=== PATIENT | male | born 1955 | race Caucasian/White ===

== ENCOUNTER 2020-07-22 14:40 | Emergency (ER) | payer BC ==
--- NOTE | 2020-07-22 15:23 | RAD REPORT ---
EXAM DESCRIPTION: RAD - Chest Single View - 07/22/2020 3:12 pm CLINICAL HISTORY: COUGH COMPARISON: None TECHNIQUE: AP portable chest image was obtained 07/22/2020 3:12 pm . FINDINGS: Portable exam is limited. Patient is semi upright in positioning. No dense mass or consoli dations seen. Lung base assessment is limited due to the amount of overlying soft tissue. Heart and v asculature are normal. No measurable pleural effusion and no pneumothorax. No acute bony abnormality seen. No acute aortic findings suspected. IMPRESSION: No acute cardiopulmonary process. Lung base assessment is limited by body habitus and portable technique. Follow-up two view imaging co uld be obtained as clinical findings warrant.
[2020-07-22 15:51] LABS: SARS-COV-2 RT PCR POSITIVE (NEGATIVE)
--- NOTE | 2020-07-22 15:52 | ER ---
Nurse's Notes [facility] Name: Alec Santos Age: 64 yrs Sex: Male : 1955 Arrival Date: 07/22/2020 Time: 14:45 Bed 14 Private MD: Diagnosis: Coronavirus infection, unspecified Presentation: 07/22 14:54 Chief complaint: Patient states: SOB, body aches and unable to smell or taste since ss yesterday. Coronavirus screen: Client denies travel out of the [place] in the last 14 days. Ebola Screen: Patient denies exposure to infectious person. Patient denies travel to an Ebola-affected area in the 21 days before illness onset. Initial Sepsis Screen: Does the patient meet any 2 criteria? No. Patient's initial sepsis screen is negative. Does the patient have a suspected source of infection? No. Patient's initial sepsis screen is negative. Risk Assessment: Do you want to hurt yourself or someone else? Patient reports no desire to harm self or others. Onset of symptoms was July 21, 2020. 14:54 Method Of Arrival: Ambulatory ss 14:54 Acuity: ERIC 3 ss Triage Assessment: 15:04 Respiratory: Onset: The symptoms/episode began/occurred yesterday, the patient has mild vg1 shortness of breath. Historical: - Allergies: 14:57 Fish Oil; ss - PMHx: 14:57 COPD; Hypertension; Diabetes - IDDM; ss - PSHx: 14:57 Appendectomy; foot; ss - Immunization history:: Adult Immunizations up to date. - Social history:: Smoking status: Reported history of juuling and/or vaping. Screenin:04 Abuse screen: Denies threats or abuse. Nutritional screening: No deficits noted. vg1 Tuberculosis screening: No symptoms or risk factors identified. Fall Risk No fall in past 12 months (0 pts). No secondary diagnosis (0 pts). No IV (0 pts). Ambulatory Aid- None/Bed Rest/Nurse Assist (0 pts). Gait- Normal/Bed Rest/Wheelchair (0 pts) Mental Status- Oriented to own ability (0 pts). Total Wilhelm Fall Scale indicates No Risk (0-24 pts). Assessment: 15:02 General: Appears in no apparent distress. comfortable, Behavior is calm, cooperative. vg1 Pain: Denies pain. Neuro: Level of Consciousness is awake, alert, obeys commands, Oriented to person, place, time, situation. Respiratory: Airway is patent Respiratory effort is even, unlabored, Respiratory pattern is regular, symmetrical, Breath sounds are clear bilaterally. Respiratory: Reports shortness of breath on exertion Denies cough. GI: Abdomen is round non-distended, Reports diarrhea. : No signs and/or symptoms were reported regarding the genitourinary system. EENT: Denies sore throat. Derm: Skin is pink, warm \T\ dry. Musculoskeletal: Circulation, motion, and sensation intact. 15:02 Reassessment: Patient stated has lost sense of smell and taste and has been around 1 people who have been exposed to covid. Vital Signs: 14:54 BP 140 / 80; Pulse 87; Resp 18; Temp 99.4(TE); Pulse Ox 97% on R/A; Weight 122.47 kg; ss Height 5 ft. 10 in. (177.80 cm); Pain 4/10; 14:54 Body Mass Index 38.74 (122.47 kg, 177.80 cm) ED Course: 14:45 Patient arrived in ED. mr 14:46 [facility] Tranistin[facility] kb 14:46 Savage Kirby MD is Attending Physician. kb 14:48 Ashley Alvarado, RN is Primary Nurse. vg1 14:55 Triage completed. ss 14:57 Arm band placed on right wrist. ss 15:04 Patient has correct armband on for positive identification. Bed in low position. Call vg1 light in reach. Side rails up X 1. 15:09 COVID swab sent to lab. Flu and/or RSV swab sent to lab. X-ray(s) taken. jp3 15:12 Chest Single View XRAY In Process Unspecified. EDMS 16:04 No provider procedures requiring assistance completed. Patient did not have IV access vg1 during this emergency room visit. Administered Medications: No medications were administered Outcome: 15:51 Discharge ordered by . kb 16:04 Discharged to home ambulatory. vg1 16:04 Condition: stable 16:04 Discharge instructions given to patient, Instructed on discharge instructions, follow up and referral plans. Demonstrated understanding of instructions, follow-up care. 16:05 Patient left the ED. vg1 Signatures: Dispatcher [employer] Yessy Leon, RIG HAND-C RIG HAND-Samreen Milner mr Sulma Griffith, RN RN ss Ronnie Cobb 3 Ashley Alvarado, DONNIE RN vg1
--- NOTE | 2020-07-22 15:52 | EDPHYS ---
Physician Documentation [facility] Name: Alec Santos Age: 64 yrs Sex: Male : 1955 Arrival Date: 07/22/2020 Time: 14:45 Bed 14 Private MD: ED Physician Savage Kirby HPI: 07/22 15:40 This 64 yrs old Male presents to ER via Ambulatory with complaints of kb Shortness Of Breath. 15:40 The patient has not experienced similar symptoms in the past. The patient has not kb recently seen a physician. 15:40 The patient or guardian reports cough, that is intermittent, described as moderate, kb with no sputum, difficulty breathing, flu symptoms, myalgias. Onset: The symptoms/episode began/occurred yesterday. Severity of symptoms: At their worst the symptoms were mild, moderate, in the emergency department the symptoms are unchanged. Modifying factors: The symptoms are alleviated by nothing, the symptoms are aggravated by nothing. Associated signs and symptoms: The patient has no apparent associated signs or symptoms. cough, congestion, lack of smell and taste, bodyaches since yesterday. Historical: - Allergies: 14:57 Fish Oil; ss - PMHx: 14:57 COPD; Hypertension; Diabetes - IDDM; ss - PSHx: 14:57 Appendectomy; foot; ss - Immunization history:: Adult Immunizations up to date. - Social history:: Smoking status: Reported history of juuling and/or vaping. ROS: 15:39 Cardiovascular: Negative for chest pain, palpitations, and edema, Abdomen/GI: Negative kb for abdominal pain, nausea, vomiting, diarrhea, and constipation, Back: Negative for injury and pain, MS/Extremity: Negative for injury and deformity, Skin: Negative for injury, rash, and discoloration, Neuro: Negative for headache, weakness, numbness, tingling, and seizure. 15:39 Constitutional: Positive for body aches, fatigue, malaise. 15:39 ENT: Positive for lack of taste and smell. 15:39 Respiratory: Positive for cough, shortness of breath, Negative for dyspnea on exertion, hemoptysis, orthopnea, pleurisy, sputum production, wheezing. Exam: 15:39 Constitutional: This is a well developed, well nourished patient who is awake, alert, kb and in no acute distress. Head/Face: Normocephalic, atraumatic. Chest/axilla: Normal chest wall appearance and motion. Nontender with no deformity. No lesions are appreciated. Cardiovascular: Regular rate and rhythm with a normal S1 and S2. No gallops, murmurs, or rubs. Normal PMI, no JVD. No pulse deficits. Respiratory: Lungs have equal breath sounds bilaterally, clear to auscultation and percussion. No rales, rhonchi or wheezes noted. No increased work of breathing, no retractions or nasal flaring. Abdomen/GI: Soft, non-tender, with normal bowel sounds. No distension or tympany. No guarding or rebound. No evidence of tenderness throughout. Skin: Warm, dry with normal turgor. Normal color with no rashes, no lesions, and no evidence of cellulitis. MS/ Extremity: Pulses equal, no cyanosis. Neurovascular intact. Full, normal range of motion. Neuro: Awake and alert, GCS 15, oriented to person, place, time, and situation. Cranial nerves II-XII grossly intact. Motor strength 5/5 in all extremities. Sensory grossly intact. Cerebellar exam normal. Normal gait. Vital Signs: 14:54 BP 140 / 80; Pulse 87; Resp 18; Temp 99.4(TE); Pulse Ox 97% on R/A; Weight 122.47 kg; ss Height 5 ft. 10 in. (177.80 cm); Pain 4/10; 14:54 Body Mass Index 38.74 (122.47 kg, 177.80 cm) ss MDM: 14:47 Patient medically screened. kb 15:38 Data reviewed: vital signs, nurses notes. Data interpreted: Pulse oximetry: on room air kb is 97 %. Interpretation: normal. Counseling: I had a detailed discussion with the patient and/or guardian regarding: the historical points, exam findings, and any diagnostic results supporting the discharge/admit diagnosis, lab results, radiology results, the need for outpatient follow up, a family practitioner, to return to the emergency department if symptoms worsen or persist or if there are any questions or concerns that arise at home. 07/22 14:52 Order name: Chest Single View XRAY; Complete Time: 15:26 kb 07/22 15:51 Order name: COVID-19/FLU A+B; Complete Time: 15:52 EDMS Administered Medications: No medications were administered Disposition: 07/22/20 15:51 Discharged to Home. Impression: Coronavirus infection, unspecified. - Condition is Stable. - Discharge Instructions: Viral Respiratory Infection, [id number], COVID-19. - Medication Reconciliation Form, Thank You Letter, Antibiotic Education, Prescription Opioid Use, Work release form form. - Follow up: Emergency Department; When: As needed; Reason: Worsening of condition. Follow up: Private Physician; When: 2 - 3 days; Reason: Recheck today's complaints, Continuance of care, Re-evaluation by your physician. Addendum: 07/24/2020 18:01 Co-signature as Attending Physician, Savage Kirby MD. m a2 Signatures: Dispatcher [employer] EDOH Yessy Tran, FREIGHT REPRESENTATIVE-C FREIGHT REPRESENTATIVE-Sulma Mojica, DONNIE RN ss Savage Kirby MD MD ma2 Ashley Alvarado RN RN vg1 Corrections: (The following items were deleted from the chart) 07/22 15:06 14:53 CORONAVIRUS+MR.LAB.BRZ ordered. EDOH EDOH 15:07 14:53 Influenza Screen (A \T\ B)+BA.LAB.BRZ ordered. [facility] EDOH 16:05 15:51 07/22/2020 15:51 Discharged to Home. Impression: Coronavirus infection, vg1 unspecified. Condition is Stable. Forms are Medication Reconciliation Form, Thank You Letter, Antibiotic Education, Prescription Opioid Use. Follow up: Emergency Department; When: As needed; Reason: Worsening of condition. Follow up: Private Physician; When: 2 - 3 days; Reason: Recheck today's complaints, Continuance of care, Re-evaluation by your physician. kb
[2020-07-22 16:09] VITALS: BP 140/80; TEMP 99.4; O2SAT 97
== END 2020-07-22 16:05 | disposition home or self-care (01) ==
LOC: ER 14:40
DX: U07.1 COVID-19 (principal); J44.9 Chronic obstructive pulmonary disease, unspecified; E11.9 Type 2 diabetes mellitus without complications; Z79.4 Long term (current) use of insulin; I10 Essential (primary) hypertension; F17.290 Nicotine dependence, other tobacco product, uncomplicated
CPT/HCPCS: 0240U; 71045; 99283

== ENCOUNTER 2024-01-29 08:06 | Emergency (ER) | payer OTHER ==
[2024-01-29 10:06] LABS: Specific Gravity 1.015 (1.005-1.030); Sqamous Epithelial <5 /HPF (None Seen); Urine Bacteria None Seen /HPF (<20); Urine Bilirubin NEGATIVE (Negative); Urine Blood Negative (Negative); Urine Clarity Clear (Clear); Urine Color Light-Yellow (Yellow); Urine Culture Reflex Order NOT NEEDED; Urine Glucose NEGATIVE (Negative); Urine Ketones NEGATIVE (Negative); Urine Microscopic Reflex YN ORDER UMIC; Urine Nitrite NEGATIVE (Negative); Urine Protein TRACE (Negative); Urine RBC None Seen /HPF (None Seen); Urine Urobilinogen Normal (Normal); Urine WBC None Seen /HPF (<5); Urine pH 6.5 (5.0-7.0)
--- NOTE | 2024-01-29 10:08 | RAD REPORT ---
EXAM DESCRIPTION: CT - Stone Protocol - 01/29/2024 9:20 am CLINICAL HISTORY: right back pain COMPARISON: Abdomen Pelvis W Contrast dated 12/26/2021; Stone Protocol dated 01/14/2019 TECHNIQUE: Thin cut axial CT imaging of the abdomen and pelvis was performed without IV contrast. Mu ltiplanar reformats were generated and reviewed. All CT scans are performed using dose optimization technique as appropriate and may include automated exposure control or mA/KV adjustment according to patient size. FINDINGS: No suspicious findings in the lung bases. The liver, spleen, adrenal glands, and pancreas show no suspicious findings. Gallbladder and biliary tree are also without suspicious finding. Symmetric renal contour, without suspicious parenchymal findings within limits of noncontrast techniq ue. No evidence of radiopaque calculi or hydroureteronephrosis. No dilated bowel loops or bowel wall thickening. Mild distal colonic diverticulosis. No free air, rosa m e fluid or inflammatory stranding. No hernia, mass or bulky lymphadenopathy. The urinary bladder is d ecompressed, with stable mild pericystic fat stranding, nonspecific. No suspicious bony findings. IMPRESSION: No acute intra-abdominal process. Decompressed bladder, again with stable mild pericystic fat stranding, nonspecific, which may represe nt sequelae of chronic cystitis. Please correlate clinically and with urinalysis results.
[2024-01-29 10:09] LABS: Absolute Eosinophils 0.1 K/uL (0-0.5); Absolute Lymphocytes (CBC) 0.9 K/uL (0.7-4.9); Absolute Monocytes 0.4 K/uL (0.1-1.3); Absolute Neutrophil 4.5 K/uL (1.8-8.0); Basophils % 0.5 % (0-1.3); Hematocrit 47.4 % (39.6-49.0); Hemoglobin 15.6 g/dL (13.6-17.9); Lymphocytes % 14.9 % (15.3-44.8); MCH 30.5 pg (27.0-35.0); MCHC 32.9 g/dL (32.0-36.0); MCV 92.5 fL (80-100); MPV 7.6 fL (7.6-11.3); Monocytes % 6.4 % (3.3-12.3); Neutrophils % 77.2 % (41.7-73.7); Platelets 165 thou/uL (152-406); RBC Red Blood Cell Count 5.13 M/uL (4.33-5.43); Red Cell Distribution Width 13.3 % (12.1-15.2)
[2024-01-29 10:18] LABS: Albumin 3.5 g/dL (3.4-5.0); Albumin/Globulin Ratio 0.9 (1.1-1.8); Anion Gap 11.3 mEq/L (5.0-15.0); Bilirubin Total 0.5 mg/dL (0.2-1.0); Globulin 3.8 g/dL (2.3-3.5); Potassium 3.3 mEq/L (3.5-5.1); Protein, Total 7.3 g/dL (6.4-8.2)
--- NOTE | 2024-01-29 11:17 | EDPHYS ---
Physician Documentation [facility] Name: Alec Santos Age: 68 yrs Sex: Male : 1955 Arrival Date: 01/29/2024 Time: 08:06 Bed 7 Private MD: ED Physician Stanford Ott HPI: 01/28 09:16 This 68 yrs old Male presents to ER via Ambulatory with complaints of Low Back Pain. rn 09:16 The patient presents with pain that is acute, with no known mechanism of injury. The rn symptoms are located in the low back. The pain does not radiate. 09:16 Onset: The symptoms/episode began/occurred 3 day(s) ago. Modifying factors: The patient rn symptoms are alleviated by nothing, the patient symptoms are aggravated by any movement. Associated signs and symptoms: Pertinent positives: none Pertinent negatives: abdominal pain, chest pain, constipation, dysuria, fever, hematuria, incontinence, numbness, tingling, urinary retention, weakness. Severity of symptoms: At their worst the symptoms were moderate, in the emergency department the symptoms are unchanged. The patient has experienced similar episodes in the past. 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 Went deep sea fishing and was kind of rough over the weekend on the boat, a few days later started having right lower back pain. No radiation. Worse with movement and bending. No abdominal pain. No urinary symptoms. Has a known prostatomegaly and takes tamsulosin but states urinary symptoms and weak stream have not changed. No chest pain or shortness of breath. No fever or chills. Has had a UTI in the past but this feels different. No history of kidney stones.. Historical: - Allergies: 08:25 Fish Oil; ap3 - PMHx: 08:25 COPD; Diabetes - IDDM; Hypertension; ap3 - Immunization history:: Client reports receiving the 2nd dose of the Covid vaccine. - Infectious Disease History:: Denies. - Social history:: Smoking status: Reported history of juuling and/or vaping. - Family history:: not pertinent. - Hospitalizations: : No recent hospitalization is reported. ROS: 09:16 Constitutional: Negative for fever, chills, and weight loss, Cardiovascular: Negative rn for chest pain, palpitations, and edema, Respiratory: Negative for shortness of breath, cough, wheezing, and pleuritic chest pain, Abdomen/GI: Negative for abdominal pain, nausea, vomiting, diarrhea, and constipation, Back: Positive for right lower back pain MS/Extremity: Negative for injury and deformity, Skin: Negative for injury, rash, and discoloration, Neuro: Negative for headache, weakness, numbness, tingling, and seizure, Exam: 09:16 Constitutional: This is a well developed, well nourished patient who is awake, alert, rn and in no acute distress. Head/Face: Normocephalic, atraumatic. Cardiovascular: Regular rate and rhythm. No pulse deficits. Respiratory: No increased work of breathing, no retractions or nasal flaring. Abdomen/GI: Soft, non-tender Back: No spinal tenderness. No costovertebral tenderness. Neuro: Awake and alert, GCS 15 Vital Signs: 08:23 BP 145 / 70; Pulse 74; Resp 18; Temp 98.2; Pulse Ox 98% ; Weight 122.47 kg; Height 5 ap3 ft. 10 in. ; Pain 6/10; 08:47 BP 138 / 70; Pulse 77; Resp 18; Temp 98.2; Pulse Ox 99% on R/A; ar6 08:23 Body Mass Index 38.74 (122.47 kg, 177.8 cm) ap3 08:23 Pain Scale: Adult ap3 MDM: 08:09 Patient medically screened. rn 11:15 Differential diagnosis: arthritis, strain, sciatica, Herniated disc UTI. Data reviewed: rn vital signs, nurses notes, lab test result(s), radiologic studies, CT scan, and as a result, I will discharge patient. Counseling: I had a detailed discussion with the patient and/or guardian regarding the historical points, exam findings, and any diagnostic results supporting the discharge/admit diagnosis, lab results, radiology results, the need for outpatient follow up, to return to the emergency department if symptoms worsen or persist or if there are any questions or concerns that arise at home. Special discussion: I discussed with the patient/guardian in detail that at this point there is no indication for admission to the hospital. It is understood, however, that if the symptoms persist or worsen the patient needs to return immediately for re-evaluation. Based on the history and exam findings, there is no indication for further emergent testing or inpatient evaluation. I discussed with the patient/guardian the need to see the back specialist for further evaluation of the symptoms. 01/28 09:08 Order name: CBC with Diff; Complete Time: 11:04 rn 01/28 09:08 Order name: CMP; Complete Time: 11:04 rn 01/28 09:08 Order name: Lipase; Complete Time: 11:04 rn 01/28 09:16 Order name: Urinalysis w/ reflexes; Complete Time: 10: rn 01/28 09:08 Order name: CT Stone Protocol; Complete Time: 10: rn 01/28 09:08 Order name: IV Start; Complete Time: 09:59 rn 01/28 09:08 Order name: Labs collected and sent; Complete Time: 09:58 rn Administered Medications: 11:35 Drug: Ketorolac IVP 15 mg IVP once Route: IVP; Site: right antecubital; ld1 15:52 Follow up: Response: No adverse reaction ld1 Disposition Summary: 01/29/24 11:17 Discharge Ordered Notes: Location: Home rn Problem: new rn Symptoms: have improved rn Condition: Stable rn Diagnosis - Low back pain rn Followup: rn - With: Private Physician - When: As needed - Reason: Recheck today's complaints, Re-evaluation by your physician Discharge Instructions: - Discharge Summary Sheet rn - Acute Back Pain, Adult rn - Musculoskeletal Pain rn Forms: - Medication Reconciliation Form rn - 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 EDMS EDMS 09:09 09:08 COMPREHENSIVE METABOLIC PANEL+C.LAB.BRZ ordered. EDMS EDMS 09:09 09:08 LIPASE+C.LAB.BRZ ordered. EDMS EDMS
--- NOTE | 2024-01-29 11:17 | ER ---
Nurse's Notes [facility] Name: Alec Santos Age: 68 yrs Sex: Male : 1955 Arrival Date: 01/29/2024 Time: 08:06 Bed 7 Private MD: Diagnosis: Low back pain Presentation: 01/28 08:23 Chief complaint: Patient states: he has been having intermittent right lower back pain ap3 for approx one month, however yesterday the pain got worse. patient currently rates his pain as a 6/10 on the pain scale, but states that at times it does get to a 10/10 and that he has noticed a slower stream in his urine. Coronavirus screen: At this time, the client does not indicate any symptoms associated with coronavirus-19. Ebola Screen: No symptoms or risks identified at this time. Initial Sepsis Screen: Does the patient meet any 2 criteria? No. Patient's initial sepsis screen is negative. Does the patient have a suspected source of infection? No. Patient's initial sepsis screen is negative. Risk Assessment: Do you want to hurt yourself or someone else? Patient reports no desire to harm self or others. Onset of symptoms is unknown. 08:23 Method Of Arrival: Ambulatory ap3 08:23 Acuity: ERIC 3 ap3 Triage Assessment: 08:25 General: Appears uncomfortable, Behavior is calm, cooperative, appropriate for age. ap3 Pain: Complains of pain in right low back. right flank. Neuro: Level of Consciousness is awake, alert, obeys commands, Oriented to person, place, time, situation, Appropriate for age. Cardiovascular: Patient's skin is warm and dry. Respiratory: Airway is patent Respiratory effort is even, unlabored, Respiratory pattern is regular, symmetrical. : Reports pain in right flank(s). Historical: - Allergies: 08:25 Fish Oil; ap3 - PMHx: 08:25 COPD; Diabetes - IDDM; Hypertension; ap3 - Immunization history:: Client reports receiving the 2nd dose of the Covid vaccine. - Infectious Disease History:: Denies. - Social history:: Smoking status: Reported history of juuling and/or vaping. - Family history:: not pertinent. - Hospitalizations: : No recent hospitalization is reported. Screenin:26 [facility] ED Fall Risk Assessment (Adult) History of falling in the last 3 months, ap3 including since admission No falls in past 3 months (0 pts) Confusion or Disorientation No (0 pts) Intoxicated or Sedated No (0 pts) Impaired Gait No (0 pts) Mobility Assist Device Used No (0 pt) Altered Elimination No (0 pt) Score/Fall Risk Level 0 - 2 = Low Risk Oriented to surroundings, Maintained a safe environment, Educated pt \T\ family on fall prevention, incl call for assistance when getting out of bed, Assessed \T\ reinforced patient's understanding of fall precautions, Hourly rounding (assess needs \T\ fall precautionary measures) done, Used ambulatory aids as needed (educated on \T\ assisted with), Used gait belt as appropriate. Abuse screen: Denies threats or abuse. Nutritional screening: No deficits noted. Tuberculosis screening: No symptoms or risk factors identified. Assessment: 08:47 Reassessment: Patient appears in no apparent distress at this time. No changes from ar6 previously documented assessment. see triage assessment. General: Appears in no apparent distress. uncomfortable, Behavior is calm, cooperative, Reports. Pain: Complains of pain in back. Neuro: Level of Consciousness is awake, alert, obeys commands, Oriented to. Cardiovascular: Capillary refill < 3 seconds. Respiratory: Airway is patent. GI: Abdomen is non-distended. : Reports pain in right flank(s). EENT: Derm: Skin is intact, is healthy with good turgor, Skin is dry, Skin is pink, warm \T\ dry. Musculoskeletal: Vital Signs: 08:23 BP 145 / 70; Pulse 74; Resp 18; Temp 98.2; Pulse Ox 98% ; Weight 122.47 kg; Height 5 ap3 ft. 10 in. ; Pain 6/10; 08:47 BP 138 / 70; Pulse 77; Resp 18; Temp 98.2; Pulse Ox 99% on R/A; ar6 08:23 Body Mass Index 38.74 (122.47 kg, 177.8 cm) ap3 08:23 Pain Scale: Adult ap3 ED Course: 08:09 Patient arrived in ED. im 08:09 Stanford Ott MD is Attending Physician. rn 08:25 Triage completed. ap3 08:26 Arm band placed on right wrist. ap3 08:52 Patient has correct armband on for positive identification. Allergy band placed. Call ar6 light in reach. Side rails up X2. Pulse ox on. NIBP on. Door closed. Noise minimized. Warm blanket given. 08:53 Zainab Floyd, RN is Primary Nurse. ar6 09:21 CT Stone Protocol In Process Unspecified. EDMS 09:59 Urinalysis w/ reflexes Sent. ld1 11:35 No provider procedures requiring assistance completed. IV discontinued, intact, ld1 bleeding controlled, No redness/swelling at site. Administered Medications: 11:35 Drug: Ketorolac IVP 15 mg IVP once Route: IVP; Site: right antecubital; ld1 15:52 Follow up: Response: No adverse reaction ld1 Medication: 11:35 VIS not applicable for this client. ld1 Outcome: 11:17 Discharge ordered by . rn 11:35 Discharged to home ambulatory, ld1 11:35 Condition: stable 11:35 Discharge instructions given to patient, Instructed on discharge instructions, follow up and referral plans. medication usage, Demonstrated understanding of instructions, follow-up care, medications, Prescriptions given X 2, 11:35 Patient left the ED. ld1 Signatures: Dispatcher [employer] EDNV Stanford Ott MD MD rn Prokisch, Amanda, RN RN ap3 Sujey Bo RN RN ld1 Arlen Mane Amber, RN RN ar6 Corrections: (The following items were deleted from the chart) 08:26 08:23 Chief complaint: Patient states: he has been having intermittent left lower back ap3 pain for approx one month, however yesterday the pain got worse. patient currently rates his pain as a 6/10 on the pain scale, but states that at times it does get to a 10/10 and that he has noticed a slower stream in his urine. ap3
[2024-01-29 11:45] VITALS: TEMP 98.2
[2024-01-29 11:47] VITALS: BP 138/70; O2SAT 99
== END 2024-01-29 11:35 | disposition home or self-care (01) ==
LOC: ER 08:06
DX: M54.50 Low back pain, unspecified (principal); Z90.79 Acquired absence of other genital organ(s); E11.9 Type 2 diabetes mellitus without complications; I10 Essential (primary) hypertension
CPT/HCPCS: 36415; 74176; 76377; 80053; 81001; 83690; 85025; 96374; 99284